=== PATIENT | male | born 1960 | race Caucasian/White ===

== ENCOUNTER → 2016-10-22 | Outpatient (CLI) | payer OTHER ==
[~2016-10-22] MED LIST: BENICAR20 MG PO; CENTRUM SILVER1 EAC4 PO; DILTIAZEM 24HR240 MG PO; FISH OIL 1,0001 EAC5 PO; FLECAINIDE ACE150 MG PO; MUCOSA400 MG PO; XARELTO20 MG PO
--- NOTE | ~2016-10-22 | 2DMMODE ---
[facility] [place] [address] 2 D/M-MODE ECHOCARDIOGRAM Name: MER[facility] GODOY Room #: REG [facility]#: [id number] Admission: 10/22/16 Attend Phys: Edward Verduzco MD Discharge: Date of : 58 Date of Service: 10/22/16 1623 Report #: [id number] THIS REPORT FOR: //name// APPROVED REPORT Study performed: 10/22/2016 13:59:22 EXAM: Comprehensive 2D, Doppler, and color-flow Echocardiogram Patient Location: Echo lab Other Information Study Quality: Technically DifficultTechnically Limited Technically limited study due to body habitus. Indications Arrhythmia Chest Pain Echo Enhancing Agent Indication: Endocardial border delineation Agent(s) / Amount(s) Used: Optison 3 cc 2D Dimensions RVDd: 30.37 mm LVEF(%): 49.24 (>50%) IVSd: 12.77 (7-11mm) LVOT Diam: 25.70 (18-24mm) LVDd: 52.55 mm PWd: 13.56 (7-11mm) Ascending Ao: 37.74 (22-36mm) LVDs: 39.36 (25-40mm) Aortic Root: 32.44 mm IVC: 17.00 mm Hoyt's LVEF: 49.24 % Volumes Left Atrial Volume (Systole) Single Plane 4CH: 22.46 mL Single Plane 2CH: 31.61 mL Aortic Valve AoV Peak Bryan.: 1.73 m/s AO Peak Gr.: 11.97 mmHg LVOT Max P.80 mmHg LVOT Max V: 1.40 m/s SIN Vmax: 4.19 cm2 Mitral Valve MV Decel. Time: 131.35 ms [facility] [address] [place] [address] 2 D/M-MODE ECHOCARDIOGRAM Name: ALEXANDRA GODOYSheba MORALES Room #: REG [facility]#: [id number] Admission: 10/22/16 Attend Phys: Edward Verduzco MD Discharge: Date of : 58 Date of Service: 10/22/16 1623 Report #: [id number] MV E Max Bryan.: 1.15 m/s Pulmonary Valve PV Peak Bryan.: 0.93 m/s PV Peak Gr.: 3.43 mmHg Left Ventricle The left ventricle is normal size. Mild concentric left ventricular hypertrophy. The left ventricular systolic function is normal. The left ventricular ejection fraction is within the normal range. LVEF is 55-60%. This study is not technically sufficient to allow evaluation of the LV diastolic function due to atrial fibrillation/flutter. Right Ventricle The right ventricle is normal size. The right ventricular systolic function is normal. Atria The left atrium size is normal. The right atrium size is normal. Aortic Valve The aortic valve is normal in structure. No aortic regurgitation is present. There is no aortic valvular stenosis. Mitral Valve The mitral valve is normal in structure. Trace mitral regurgitation. No evidence of mitral valve stenosis. Tricuspid Valve The tricuspid valve is normal in structure. There is trace tricuspid regurgitation. Unable to assess PA pressure. Pulmonic Valve Pulmonic valve is not well visualized. Great Vessels The aortic root is normal in size. The ascending aorta is mildly dilated at 3.8 cm. The inferior vena cava is not well visualized. <Conclusion> The left ventricle is normal size. Mild concentric left ventricular hypertrophy. The left ventricular systolic function is normal. The right ventricle is normal size. [facility] [address] [place] [address] 2 D/M-MODE ECHOCARDIOGRAM Name: MERCY GODOY Room #: REG [facility]#: [id number] Admission: 10/22/16 Attend Phys: Edward Verduzco MD Discharge: Date of : 58 Date of Service: 10/22/161622 Report #: [id number] The left atrium size is normal. The aortic valve is normal in structure. Trace mitral regurgitation. There is trace tricuspid regurgitation. <ELECTRONICALLY SIGNED> By: Edwrad Verduzco MD 10/22/16 1623 22 1623 Edward Verduzco MD /INF
== END ==
LOC: CV 09:36
DX: I49.9 Cardiac arrhythmia, unspecified (principal)

== ENCOUNTER → 2016-11-18 | Outpatient (CLI) | payer OTHER | LOC: SLEEPLAB 08:28 | DX: G47.33 Obstructive sleep apnea (adult) (pediatric) (principal) ==